=== PATIENT | male | born 1960 | race Caucasian/White ===

== ENCOUNTER → 2020-12-29 09:17 | Outpatient (CLI) | payer OTHER, SELFPAY ==
[2020-12-29] MEDS: COVID-19 VACC #1, MRNA(MOD) 100 MCG/0.5 ML VIAL IM (09:43)
== END ==
PROVIDERS: Visit Provider Internal Medicine
DX: Z23 Encounter for immunization (principal)
CPT/HCPCS: 0011A; 91301

== ENCOUNTER → 2021-01-26 09:06 | Outpatient (CLI) | payer OTHER, SELFPAY ==
[2021-01-26] MEDS: COVID-19 VACC #2, MRNA(MOD) 100 MCG/0.5 ML VIAL IM (09:12)
== END ==
PROVIDERS: Visit Provider Internal Medicine
DX: Z23 Encounter for immunization (principal)
CPT/HCPCS: 0012A; 91301

== ENCOUNTER 2025-02-20 09:27 | Emergency (ER) | payer OTHER, SELFPAY ==
[2025-02-20] VITALS (10 sets, daily range): BP systolic 120–139; BP diastolic 62–82; PULSE 58–77; RESP 16–22; TEMP 36.6; O2SAT 92–99; BMI 35.9
--- NOTE | 2025-02-20 09:39 | EKG_ITS ---
[address] [id number] [address] [address] Test Date: 2025-02-20 Pat Name: Franki Pérez Department: Room: Gender: Male Public Health Analyst: ELIZABETH : 1960 Requested By: Order Number: [id number] Reading MD: Eric Cano MD Measurements Intervals [place] Rate: 57 P: 65 TN: 184 QRS: 88 QRSD: 92 T: 70 QT: 402 QTc: 391 Interpretive Statements Sinus bradycardia Electronically Signed On 02-20-2025 10:05:40 PDT by Eric Cano MD
--- NOTE | 2025-02-20 09:56 | DI.RAD.S_ITS ---
PROCEDURE: XR CHEST 1V INDICATIONS: Chest Pain TECHNIQUE: One view of the chest was acquired. COMPARISON: None. FINDINGS: Surgical changes and devices: None. Lungs and pleura: Lungs are clear. No pleural effusions or pneumothorax. Mediastinum: Mediastinal contours appear normal. Heart size is enlarged. Bones and chest wall: No suspicious bony lesions. Overlying soft tissues appear unremarkable. IMPRESSION: No acute pulmonary process. Dictated by: Stacy Spain M.D. on 02/20/2025 at 11:57 Approved by: Stacy Spain M.D. on 02/20/2025 at 11:57
[2025-02-20 10:10] LABS: Alanine Aminotransferase 54 IU/L (<50); Albumin 4.5 g/dL (3.5-5.0); Albumin Globulin Ratio 1.5 (1.0-2.8); Alkaline Phosphatase 76 U/L (38-126); Aspartate Aminotransferase 59 IU/L (17-59); BUN Creatinine Ratio 19.6 (6-22); Bilirubin Total 1.4 mg/dL (0.2-1.3); Blood Urea Nitrogen 19 mg/dL (9-20); Calcium 9.4 mg/dL (8.4-10.2); Carbon Dioxide 30 mmol/L (22-32); Chloride 102 mmol/L (98-107); Estimated Glomerular Filt Rate > 60 mL/min (>60); Glucose 111 mg/dL (70-99); HEMOLYSIS 22 (0-50); Lipase 91 U/L (23-300); Potassium 4.4 mmol/L (3.4-5.1); Sodium 139 mmol/L (137-145); Total Protein 7.5 g/dL (6.3-8.2)
--- NOTE | 2025-02-20 10:13 | ED_ITS ---
HPI - Syncope General Chief Complaint: Syncope Stated Complaint: sent from [facility] fainted at work Time Seen by Provider: 02/20/25 10:10 History of Present Illness HPI narrative: Patient is a 64-year-old male who recently had an appendectomy at [facility] about 3 weeks ago presenting today with a syncopal episode. He was getting a physical exam had a pneumonia shot yesterday felt tired and also had some cocktails before bed. He was at work this morning he has not had any breakfast or anything to eat yet. He says he was standing on the dock when he got very hot sweaty lightheaded and passed out briefly. It does not think that he hit his head he has no numbness tingling weakness. He was no abdominal pain. He reports he was cleared from surgery. He was otherwise feeling well. Expected to feel some illness from his pneumonia vaccine yesterday. He reports he really did not eat much yesterday or this morning [facility] records reviewed Related Data Home Medications Medication Instructions Recorded Confirmed TESTOSTERONE (#ANDRODERM) mg TD Q MONTH ##0 05/16/12 niacin 500 mg tablet 500 mg PO QDAYPRN ##0 05/16/12 Allergies Allergy/AdvReac Type Severity Reaction Status Date / Time No Known Drug Allergies Allergy Verified 02/20/25 09:45 Exam Initial Vital Signs Initial Vital Signs: Vital Signs Pulse Rate 77 02/20/25 09:34 GENERAL: Alert 64-year-old male and in no acute distress. HEENT: Head atraumatic,EOMI, pupils reactive, face symmetric, moist mucous membranes CARDIOVASCULAR: Regular rate and rhythm without murmurs, rubs or gallops. RESPIRATORY: Breath sounds equal bilaterally, no wheezes rales or rhonchi. ABDOMEN: Soft, nontender. Normoactive bowel sounds all 4 quadrants. No guarding or rebound. Incision sites are clean and dry noninfected EXTREMITIES: Normal range of motion, no clubbing or edema. Neurovascularly intact NEUROLOGICAL: Alert and oriented x4.Normal gait and speech. Cranial nerves II through XII grossly intact. SKIN: Warm, dry, no laceration, no petechiae, no rashes or lesions. Course Orders Ordered: ED Orders 02/20/25 09:43 Complete Blood Count AUTO DIFF Stat Comprehensive Metabolic Panel Stat Lactate (Lactic Acid) Stat Lipase Stat Magnesium Stat NT-proBNP (BNP-Adult 18+) Stat PTT Partial Thromboplastin Eran Stat Prothrombin Time INR Stat Troponin & CK Cardiac Panel Stat 02/20/25 09:53 EKG-12 Lead Stat 02/20/25 09:56 XR chest 1V Stat 02/20/25 11:54 Urine Microscopic Stat Discontinued Medications Sodium Chloride (Normal Saline 0.9%) 1,000 mls @ 1,000 mls/hr IV BOLUS ONE Stop: 02/20/25 11:23 Last Infusion: 02/20/25 11:55 Dose: Infused Documented By: Admin: 02/20/25 10:40 Dose: 1,000 mls/hr Documented By: PHANI Ondansetron HCl (Ondansetron 4 Mg/2 Ml Inj) 4 mg IV NOW PRN PRN Reason: Nausea And Vomiting Ondansetron HCl (Ondansetron 4 Mg Odt) 4 mg PO NOW PRN PRN Reason: Nausea And Vomiting Vital Signs Vital signs: Vital Signs - 8 hr 02/20/25 09:34 02/20/25 09:35 02/20/25 09:35 Temperature Pulse Rate 77 73 Respiratory Rate Blood Pressure 136/80 Pulse Oximetry 94 Oxygen Delivery Method 02/20/25 09:45 02/20/25 10:00 02/20/25 10:00 Temperature 97.8 F Pulse Rate 67 67 Respiratory Rate 16 16 Blood Pressure 136/80 134/71 Pulse Oximetry 99 94 Oxygen Delivery Method Room Air 02/20/25 10:30 02/20/25 10:30 02/20/25 11:00 Temperature Pulse Rate 58 L 66 Respiratory Rate 18 19 Blood Pressure 120/62 Pulse Oximetry 92 94 Oxygen Delivery Method 02/20/25 11:00 02/20/25 11:16 02/20/25 11:30 Temperature Pulse Rate 64 66 Respiratory Rate 22 Blood Pressure 123/82 123/82 Pulse Oximetry 98 Oxygen Delivery Method 02/20/25 11:30 02/20/25 12:00 02/20/25 12:00 Temperature Pulse Rate 59 L Respiratory Rate 20 Blood Pressure 139/70 130/78 Pulse Oximetry Oxygen Delivery Method 02/20/25 12:30 02/20/25 12:30 Temperature Pulse Rate 61 Respiratory Rate 19 Blood Pressure 139/74 Pulse Oximetry 93 Oxygen Delivery Method MDM - Syncope Lab Data 02/20/25 09:43 02/20/25 09:43 Labs: Lab Results 02/20/25 02/20/25 Range/Units 09:43 11:54 WBC 9.0 (4.5-11.0) X10^3/uL RBC 4.41 L (4.5-5.9) X10^6/uL Hgb 14.1 (13.5-17.5) g/dL Hct 40.5 L (41-53) % MCV 91.8 (80-100) fL MCH 31.9 (26-34) PG MCHC 34.8 (30-36) % RDW 13.9 (11.6-14.8) % Plt Count 233 (150-400) X10^3/uL Neut % (Auto) 80.9 H (50-75) % Lymph % (Auto) 10.8 L (25-40) % [place] % (Auto) 6.8 (3-14) % Eos % (Auto) 1.1 L (2-4) % Baso % (Auto) 0.4 (0-2) % Neut # (Auto) 7300 H (9285-5433) /uL Lymph # (Auto) 1000 L (9755-8504) /uL [place] # (Auto) 600 (0-900) /uL Eos # (Auto) 100 (0-450) /uL Baso # (Auto) 0 (0-100) /uL PT 11.5 (9.4-12.5) SECONDS INR 1.0 (0.9-1.3) APTT 32 (25.1-36.5) SECONDS Sodium 139 (137-145) mmol/L Potassium 4.4 (3.4-5.1) mmol/L Chloride 102 (98-107) mmol/L Carbon Dioxide 30 (22-32) mmol/L BUN 19 (9-20) mg/dL Creatinine 0.97 (0.66-1.25) mg/dL Estimated GFR > 60 (>60) mL/min BUN/Creatinine Ratio 19.6 (6-22) Glucose 111 H (70-99) mg/dL Lactate 1.4 (0.7-2.1) mmol/L Calcium 9.4 (8.4-10.2) mg/dL Magnesium 1.8 (1.6-2.3) mg/dL Total Bilirubin 1.4 H (0.2-1.3) mg/dL AST 59 (17-59) IU/L ALT 54 H (<50) IU/L Alkaline Phosphatase 76 (38-126) U/L Total Creatine Kinase 147 (55-170) U/L Troponin I < 0.012 (0.01-0.034) ng/mL NT-Pro-B Natriuret Pep < 20 (<125) pg/mL Total Protein 7.5 (6.3-8.2) g/dL Albumin 4.5 (3.5-5.0) g/dL Globulin 3.0 (1.7-4.1) g/dL Albumin/Globulin Ratio 1.5 (1.0-2.8) Lipase 91 (23-300) U/L Urine RBC 0-1/hpf (0-5/HPF) Urine WBC 1-5/hpf (0-5/HPF) Ur Squamous Epith Cells None seen (0-5/HPF) Urine Bacteria None seen (None) Hyaline Casts 5-10/lpf (None) Ur Culture Indicated? Cult not indicated Vol Urine Centrifuged 10ml (spun) Urine Dip Bedside Urine Glucose Negative Bedside Urine Bilirubin - Negative Bedside Urine Ketone - Negative Urine Specific [place] 1.015 Bedside Urine Occult Blood - Negative Bedside Urine pH 6.5 Bedside Urine Protein +/- 15 Bedside Urine Urobilinogen +/- 1mg Bedside Urine Nitrite - Negative Bedside Urine Leukocytes - Negative Esterase Imaging Data Chest x-ray: Radiologist's Impression: PROCEDURE: XR CHEST 1V INDICATIONS: Chest Pain TECHNIQUE: One view of the chest was acquired. COMPARISON: None. FINDINGS: Surgical changes and devices: None. Lungs and pleura: Lungs are clear. No pleural effusions or pneumothorax. Mediastinum: Mediastinal contours appear normal. Heart size is enlarged. Bones and chest wall: No suspicious bony lesions. Overlying soft tissues appear unremarkable. IMPRESSION: No acute pulmonary process. Dictated by: Stacy Spain M.D. on 02/20/2025 at 11:57 ECG Data Attestation: I personally reviewed and interpreted this ECG as follows: Interpretation: Normal sinus rhythm rate 57 IA interval 184 QRS 92 QTc [address] changes or T-wave inversions MDM Narrative Medical decision making narrative: MDM CC: Near-syncope Complicating co-morbidities: Recent appendectomy Data collected from: Patient Medical records reviewed: Previous [facility] records reviewed see ED visit no significant complication noted do not really see discharge summary Differential considered: Vasovagal sepsis, anemia, cardiac arrhythmia Exam documented above, pertinent findings include: Alert well-appearing 64-year-old male no respiratory distress abdomen soft nontender 70 sites clean and dry Lab Test results independently reviewed as above. Pertinent findings: WBC 9.0 hemoglobin 14.1 hematocrit 40.5 platelets 233 Sodium 139 potassium 4.4 chloride 102 carbon dioxide 30 BUN 19 creatinine 0.97 Lactate 1.4 1.8 Bilirubin 1.4 AST ALT within normal limits Troponin negative Independently reviewed EKG as above Sinus rhythm no ischemia Imaging studies independently reviewed: Chest x-ray no acute cardiopulmonary process Consultations: None Treatments: IV fluids Zofran Re-evaluations: Vitals remained stable patient awake and alert no neurovascular deficit Discussion: 64-year-old male presenting today with a near syncopal episode. He did receive his pneumonia vaccine yesterday. Did not eat a large dinner or breakfast this morning. Had near syncopal episode while standing [place] a dock. No fall or significant injury. I suspect vasovagal reaction. Blood work has been reviewed overall reassuring. No significant anemia leukocytosis lactate is within normal limits. BUN creatinine are also within normal limits. Abdomen is soft nontender I do not suspect any complication from surgery there is no evidence of cellulitis. At this time I do not see that he needs any advanced imaging Discharge Plan Departure Patient Disposition: Home Clinical Impression: Vasovagal syncope Instructions: DI for Syncope in Adults (Fainting) Activity Restrictions/Additional Instructions: *You have been diagnosed with fainting *What to do: At this time eat regularly drink fluids *Continue to take medications as directed *Follow up with your primary care provider in 2-3 days or call [phone] *Return to ER if you should have increasing chest pain dizziness abdominal pain or any new, worsening or concerning symptoms Prescriptions: No Action TESTOSTERONE (#ANDRODERM) TD Q MONTH Qty: 0 niacin 500 MG tablet 500 mg PO QDAYPRN Qty: 0 Stand Alone Forms: Patient Portal/API/Survey
[2025-02-20 10:14] LABS: Add Manual Diff / Slide Review NO; Basophils Absolute Auto 0 /uL (0-100); Basophils Percent Auto 0.4 % (0-2); Eosinophils Absolute Auto 100 /uL (0-450); Eosinophils Percent Auto 1.1 % (2-4); Hematocrit 40.5 % (41-53); Hemoglobin 14.1 g/dL (13.5-17.5); Lymphocytes Absolute Auto 1000 /uL (1100-4500); Lymphocytes Percent Auto 10.8 % (25-40); Mean Corpuscular HGB Conc 34.8 % (30-36); Mean Corpuscular Hemoglobin 31.9 PG (26-34); Mean Corpuscular Volume 91.8 fL (80-100); Monocytes Absolute Auto 600 /uL (0-900); Monocytes Percent Auto 6.8 % (3-14); Neutrophils Absolute Auto 7300 /uL (1500-7000); Neutrophils Percent Auto 80.9 % (50-75); Platelet Count 233 X10^3/uL (150-400); Red Blood Cell Count 4.41 X10^6/uL (4.5-5.9); Red Cell Distribution Width 13.9 % (11.6-14.8)
[2025-02-20] MEDS: SODIUM CHLORIDE 0.9% 1,000 ML 1000 ML IV (10:40)
[2025-02-20 11:52] LABS: Prothrombin Time 11.5 SECONDS (9.4-12.5)
[2025-02-20 11:54] LABS: PTT Partial Thromboplastin Tim 32 SECONDS (25.1-36.5)
[2025-02-20 12:07] LABS: Creatine Kinase 147 U/L (55-170); Lactate (Lactic Acid) 1.4 mmol/L (0.7-2.1); Magnesium 1.8 mg/dL (1.6-2.3)
[2025-02-20 12:18] LABS: NT-proBNP (BNP-Adult 18+) < 20 pg/mL (<125); Troponin I < 0.012 ng/mL (0.01-0.034)
[2025-02-20 12:44] LABS: Bacteria Urine None Seen; Culture Indicated Urine Cult Not Indicated; Hyaline Casts Urine 5-10/LPF; RBC Urine 0-1/HPF (0-5/HPF); Squamous Epithelial Cell Urine None Seen (0-5/HPF); Urine Volume 10mL (spun); WBC Urine 1-5/HPF (0-5/HPF)
== END 2025-02-20 12:44 | disposition home or self-care (01) ==
PROVIDERS: Emergency Provider Emergency Medicine
DX: R55 Syncope and collapse (principal)
CPT/HCPCS: 36415; 71045; 80053; 81003; 81015; 82550; 83605; 83690; 83735; 83880; 84484; 85025; 85610; 85730; 93005; 93010; 96360; 99284